=== PATIENT | male | born 1960 | race Caucasian/White ===

== ENCOUNTER → 2019-07-15 | Outpatient (CLI) | payer BC ==
--- NOTE | 2019-07-15 08:59 | US ---
EXAMINATION TYPE: US abdomen complete DATE OF EXAM: 07/15/2019 COMPARISON: NONE CLINICAL HISTORY: R10.9 Abdominal pain. RUQ pain and nausea that comes and goes in waves over the pas t 3 weeks EXAM MEASUREMENTS: Liver Length: 13.5 cm Gallbladder Wall: 0.2 cm CBD: 0.4 cm Spleen: 13.8 cm Right Kidney: 10.6 x 5.3 x 6.3 cm Left Kidney: 11.0 x 4.7 x 4.7 cm Pancreas: not seen due to bowel gas Liver: unable to image the left lobe due to high placement within ribcage and bowel gas , hypoechoic area superior to gallbladder may represent fatty sparring versus other etiology Gallbladder: wnl Evidence for sonographic Quinn's sign: no CBD: wnl Spleen: slightly enlarged Right Kidney: cysts seen, largest = 2.7cm in upper pole Left Kidney: 1.3cm cyst seen at superior pole Upper IVC: wnl Abd Aorta: wnl IMPRESSION: 1. Splenomegaly 2. Hypoechoic area within the left lobe liver of indeterminate etiology. Recommend CT of the abdomen. 3. Heterogeneous pattern of liver can be seen with fatty infiltration, hepatocellular disease or hepa titis.
== END | disposition home or self-care (01) ==
LOC: RADUSWWP 08:00
PROVIDERS: ATTEND Family Medicine
DX: K76.0 Fatty (change of) liver, not elsewhere classified (principal); R16.1 Splenomegaly, not elsewhere classified
CPT/HCPCS: 76700

== ENCOUNTER → 2019-07-24 | Outpatient (CLI) | payer BC ==
--- NOTE | 2019-07-24 09:08 | NM ---
EXAMINATION TYPE: NM hepatobiliary w EF DATE OF EXAM: 07/24/2019 COMPARISON: Ultrasound 07/15/2019 HISTORY: 58-year-old male with decreased appetite, nausea, heartburn, reflux, ulcers, alcohol use. TECHNIQUE: After the intravenous administration of 4.18 mCi Tc 99m Mebrofenin hepatobiliary scintigra phy is performed. Immediate images post injection. FINDINGS: There is satisfactory initial accumulation of tracer by the liver. The gallbladder is visualized wit hin 10 minutes. The small bowel activity is noted within 24 minutes. At one hour 8 ounces of oral e nsure plus is given to mimic CCK and gallbladder ejection fraction is calculated at 74 %, in the norm al range. Therefore there is no scintigraphic evidence of cystic or common bile duct obstruction to suggest acute cholecystitis or gallbladder dyskinesia. IMPRESSION: No scintigraphic evidence for acute/chronic cholecystitis or biliary dyskinesia.
== END | disposition home or self-care (01) ==
LOC: RADNMMAIN 06:56
PROVIDERS: ATTEND Family Medicine
DX: R10.11 Right upper quadrant pain (principal)
CPT/HCPCS: 78226; A9537

== ENCOUNTER → 2019-07-26 | Outpatient (CLI) | payer BC ==
--- NOTE | 2019-07-27 21:46 | CT ---
EXAMINATION TYPE: CT abdomen pelvis w con DATE OF EXAM: 07/26/2019 COMPARISON: NONE HISTORY: 58-year-old male Right upper quadrant pain with nausea x 4 weeks. TECHNIQUE: Contiguous axial scanning of the abdomen and pelvis following administration of 100 ml Iso sixto 300 IV contrast. Delayed images through the kidneys and coronal/sagittal reconstructions perform ed. CT DLP: 1058.9 mGycm Automated exposure control for dose reduction was used. FINDINGS: Heart normal size without pericardial effusion. Tiny hiatal hernia. Lung bases clear without pleural effusion. No focal liver lesion or biliary ductal dilatation. Portal venous system is patent. Gallbladder, adrenal glands, spleen, and pancreas appear within normal limits. Numerous cortical hypodensities within the kidneys, largest compatible with cysts, for example, measu ring 2.8 cm from the right upper pole and 1.6 cm from the left midpole. Additional cortical hypodensi ties are too small for accurate CT characterization and also likely represent cysts. No dilated small bowel, free fluid, or free air. No mesenteric or retroperitoneal lymphadenopathy. Normal appendix. Oral contrast progressed to the ascending colon. [id number] stool in the right side of the colon. Sigmoid diverticulosis. No pericolonic inflammatory change. Bladder is urine distended. Prostate gland enlargement 4.6 cm wide. No abnormal fluid collection in t he pelvis or pelvic lymphadenopathy. Bones: Degenerative changes at the hips. Mild degenerative disc disease L5-S1 and facet arthropathy l ower lumbar spine. Anterior endplate spondylosis lower thoracic spine. IMPRESSION: 1. SIGMOID DIVERTICULOSIS WITHOUT ACUTE DIVERTICULITIS. 2. MILD PROSTATOMEGALY (4.6 CM WIDE). 3. TINY HIATAL HERNIA.
== END | disposition home or self-care (01) ==
LOC: RADCTMAIN 11:49
PROVIDERS: ATTEND Family Medicine
DX: K57.30 Diverticulosis of large intestine without perforation or abscess without bleeding (principal); K44.9 Diaphragmatic hernia without obstruction or gangrene; N40.0 Benign prostatic hyperplasia without lower urinary tract symptoms
CPT/HCPCS: 74177; Q9967 ×2

== ENCOUNTER 2019-08-05 09:35 | Day surgery (SDC) | payer BC ==
[2019-07-30 17:42] VITALS: BMI 27.3
[~2019-08-05 09:35] MED LIST: LACTATED RINGERS 1,000 ML IV SCH
[2019-08-05 10:07] VITALS: RESP 16; TEMP 98
[2019-08-05] MEDS ORDERED: LIDOCAINE 1% 20 ML VIAL (10MG/ML) FOR IV START INTRADERMA ONE (10:12)
[2019-08-05] MEDS ORDERED: PROPOFOL 10 MG/ML 20 ML VIAL IV ONE (11:03)
--- NOTE | 2019-08-05 11:53 | P.PCN ---
Date of Procedure: 08/05/19 Description of Procedure: Brief history: Patient is a pleasant scheduled for an elective upper endoscopy as well as colonoscopy as a part of evaluation of dyspepsia and change in bowel habits. Procedure performed: Esophagogastroduodenoscopy with biopsies Colonoscopy with polypectomy and biopsies Estimated blood loss: Minimal. Preoperative diagnosis: Dyspepsia, change in bowel habits, last colonoscopy in 2009 Anesthesia: MAC Procedure: After informed consent was obtained from the patient was brought into the endoscopy unit and IV sedation was administered by anesthesia under continuous monitoring. Initially upper endoscopy was done. The Olympus GF 190 video endoscope was inserted into the mouth and esophagus intubated without any difficulty and was gradually advanced into the stomach and duodenum and carefully examined. The bulb and second part of the duodenum appeared normal, with biopsies taken to rule out celiac sprue. The scope was then withdrawn into the stomach adequately insufflated with air and upon careful examination the antrum and body, cardia and fundus appeared normal, except for some mild scattered erythema in the antrum and body suggestive of mild gastritis with biopsies taken to rule out Helicobacter pylori. The scope was then withdrawn into the esophagus. The GE junction was located at 41 cm to the incisors and appeared somewhat irregular with biopsies taken. It appeared regular with no erythema erosions or ulcerations. Rest of the esophagus appeared normal. Patient tolerated the procedure well. At this time the patient continued to remain sedation. Initial digital rectal examination was normal. Olympus CF 190 video colonoscope was then inserted into the rectum and gradually advanced to the cecum without any difficulty. Careful examination was performed as the scope was gradually being withdrawn. The prep was excellent. The cecum, ascending colon, transverse colon, descending colon, sigmoid colon and rectum appeared normal biopsies taken of the right and left colon to rule out microscopic colitis. Terminal ileum intubated and appeared normal with biopsies taken to rule out inflammatory process. A few small mouth diverticula noted in the sigmoid colon. Diminutive 2 mm sessile ascending colon polyp removed with cold forcep polypectomy. Diminutive 1 mm descending colon polyp removed with cold forcep polypectomy. Retroflexion was performed in the rectum and no lesions were noted. Patient tolerated the procedure well. Impression: 1. Mild gastritis antrum body, biopsied. Biopsies of the duodenum and GE junction. 2. 2 diminutive polyps removed with cold forceps from the ascending and descending colon. Mild sigmoid diverticulosis. Random biopsies taken of the right colon, left colon and terminal ileum to rule out inflammatory process. Recommendations: Findings of this examination were discussed with the patient as well as his . Okay to resume diet. Okay to resume medications. Follow-up in gastroenterology clinic as previously scheduled for pathology results.
[2019-08-05 12:15] VITALS: BP 106/70; PULSE 55
== END 2019-08-05 12:30 | disposition home or self-care (01) ==
LOC: ORWHC2ENDO 09:35
PROVIDERS: ATTEND Internal Medicine
DX: K29.50 Unspecified chronic gastritis without bleeding (principal); K21.0 Gastro-esophageal reflux disease with esophagitis; K63.89 Other specified diseases of intestine; D12.4 Benign neoplasm of descending colon; K57.30 Diverticulosis of large intestine without perforation or abscess without bleeding; I10 Essential (primary) hypertension; R00.2 Palpitations; N40.0 Benign prostatic hyperplasia without lower urinary tract symptoms; M10.9 Gout, unspecified; R11.0 Nausea; Z79.899 Other long term (current) drug therapy; Z90.89 Acquired absence of other organs; Z98.890 Other specified postprocedural states; Z84.89 Family history of other specified conditions; Z80.8 Family history of malignant neoplasm of other organs or systems
CPT/HCPCS: 88305; 45380; 43239; J2704

== ENCOUNTER 2019-11-18 19:12 | Emergency (ER) | payer BC ==
[2019-11-18 19:17] VITALS: RESP 18
[2019-11-18] MEDS ORDERED: SODIUM CHLORIDE 0.9% 1,000 ML IV STA (19:35)
[2019-11-18] MEDS ORDERED: PANTOPRAZOLE 40 MG/10 ML VIAL IVP STA (19:35)
--- NOTE | 2019-11-18 19:49 | ED ---
Abdominal Pain HPI - General Chief Complaint: Abdominal Pain Stated Complaint: GI issue Time Seen by Provider: 11/18/19 19:20 Source: patient Mode of arrival: wheelchair Limitations: no limitations - History of Present Illness Initial Comments: Patient is a 59-year-old male presenting to emergency Department with multiple abdominal complaints. Patient states he's been having GI issues since July including intermittent abdominal pains, diarrhea, constipation, bloating. He states he has been seeing Dr. Madrigal's office. Patient states in July he was fully worked up including blood work, scans, HIDA scan. There is no acute findings. Patient had a colonoscopy as well that showed diverticulosis, a few small polyps. Patient states he has lost approximately 30 pounds since July. He states he has not been trying to lose weight but has not had much of an appetite secondary to this intermittent abdominal pain. He denies any abdominal surgeries in the past. He states he was having issues with constipation but one week ago started having diarrhea. He denies melana. He does admit to having hemorrhoids but these are not bleeding. He states he has a family history of IBS. Patient states the reason he came in today because his s ymptoms have really increased over the past week. 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 Patient states he felt is best when he was on medication a few weeks ago. He states he really had any symptoms at all. Patient denies any fever, chills, chest pain, shortness of breath. Patient states he feels like he had a small episode of lightheadedness today. He denies any headache. He has no other complaints at this time. Upon arrival to the ER, his vital signs are stable. - Related Data Home Medications Medication Instructions Recorded Confirmed Lisinopril [Prinivil] 20 mg PO HS 06/23/16 08/05/19 Allopurinol [Zyloprim] 100 mg PO HS 07/30/19 08/05/19 Bismuth Subsalicylate 262 mg PO DAILY PRN 07/30/19 08/05/19 [Pepto-Bismol] L.acidoph,Paracasei, B.lactis 1 each PO DAILY 07/30/19 08/05/19 [Probiotic] Metoprolol Succinate (ER) [Toprol 50 mg PO HS 07/30/19 08/05/19 Xl] Omeprazole Magnesium [PriLOSEC OTC] 20 mg PO DAILY PRN 07/30/19 08/05/19 Omeprazole [PriLOSEC] 40 mg PO DAILY 07/30/19 08/05/19 Simethicone [Gas-X] 125 mg PO DIRECTED PRN 07/30/19 08/05/19 Previous Rx's Medication Instructions Recorded Dicyclomine [Bentyl] 20 mg PO TID #30 tablet 11/18/19 Allergies Allergy/AdvReac Type Severity Reaction Status Date / Time No Known Allergies Allergy Verified 11/18/19 19:17 Review of Systems ROS Statement: Those systems with pertinent positive or pertinent negative responses have been documented in the HPI. ROS Other: All systems not noted in ROS Statement are negative. Past Medical History Past Medical History: Hypertension, Prostate Disorder Additional Past Medical History / Comment(s): Occ Irregular heart beat. c/o nausea, abn pain, sour upset stomach for past 5 weeks. Sl BPH. Gout. History of Any Multi-Drug Resistant Organisms: None Reported Past Surgical History: Adenoidectomy, Tonsillectomy Additional Past Surgical History / Comment(s): Colonoscopy Past Anesthesia/Blood Transfusion Reactions: Family History of Problems w/ Anesthesia Additional Past Anesthesia/Blood Transfusion Reaction / Comment(s): Mother has PONV Past Psychological History: No Psychological Hx Reported Smoking Status: Never smoker Past Alcohol Use History: None Reported Past Drug Use History: None Reported - Past Family History Mother Family Medical History: Cancer Additional Family Medical History / Comment(s): Oral CA Father Family Medical History: Blood Disorder, Pulmonary Embolus Additional Family Medical History / Comment(s): "Had a gene for clotting disorder" General Exam - General Exam Comments Initial Comments: GENERAL: Well-appearing, well-nourished and in no acute distress. HEAD: Atraumatic, normocephalic. EYES: Pupils equal round and reactive to light, extraocular movements intact, sclera anicteric, conjunctiva are normal. ENT: TMs normal, nares patent, oropharynx clear without exudates. Moist mucous membranes. NECK: Normal range of motion, supple without lymphadenopathy or JVD. LUNGS: Breath sounds clear to auscultation bilaterally and equal. No wheezes rales or rhonchi. HEART: Regular rate and rhythm without murmurs, rubs or gallops. ABDOMEN: Generalized abdominal tenderness with palpation, increase in the right lower quadrant as well as right upper quadrant. Soft, normoactive bowel sounds. No guarding, no rebound. No masses appreciated. : Deferred EXTREMITIES: Normal range of motion, no pitting or edema. No clubbing or cyanosis. NEUROLOGICAL: Normal speech, normal gait. PSYCH: Normal mood, normal affect. SKIN: Warm, Dry, normal turgor, no rashes or lesions noted. Limitations: no limitations Course Vital Signs 11/18/19 11/18/19 19:14 20:58 Temperature 98.2 F 97.6 F Pulse Rate 82 66 Respiratory 18 18 Rate Blood Pressure 116/78 114/74 O2 Sat by Pulse 98 98 Oximetry Medical Decision Making - Medical Decision Making Patient is a 59-year-old male presenting with abdominal pain has been increasing over the past week. Vital signs are stable. He has been seeing Dr. Madrigal's office for chronic GI issues since July. Lab work today shows no acute abnormalities, normal lactic, urine is normal. Computed tomography scan of the abdomen today shows no signs of acute abdomen. Normal appendix, a few scattered diverticuli without evidence diverticulitis. Patient was given fluids and Protonix and reports improvement in symptoms. I discussed with patient that this may be stress-induced. Could also be related to IBS. I do not feel like this is infectious in nature. I recommended trial of Bentyl. Patient will continue on already prescribed omeprazole and Pepcid. He does have an appointment with Dr. Madrigal's office tomorrow. His stool culture is pending at this time. Patient is stable for discharge at this time. He is in agreement with this plan of care. Return parameters were discussed with the patient and he verbalized understanding. Case discussed with Dr. Reis. - Lab Data Result diagrams: 11/18/19 19:44 11/18/19 19:44 Lab Results 11/18/19 11/18/19 11/18/19 Range/Units 19:44 19:44 19:44 WBC 7.4 (3.8-10.6) k/uL RBC 4.37 (4.30-5.90) m/uL Hgb 13.2 (13.0-17.5) gm/dL Hct 38.8 L (39.0-53.0) % MCV 88.7 (80.0-100.0) fL MCH 30.3 (25.0-35.0) pg MCHC 34.1 (31.0-37.0) g/dL RDW 12.2 (11.5-15.5) % Plt Count 197 (150-450) k/uL Neutrophils % 71 % Lymphocytes % 20 % Monocytes % 6 % Eosinophils % 2 % Basophils % 0 % Neutrophils # 5.3 (1.3-7.7) k/uL Lymphocytes # 1.4 (1.0-4.8) k/uL Monocytes # 0.4 (0-1.0) k/uL Eosinophils # 0.1 (0-0.7) k/uL Basophils # 0.0 (0-0.2) k/uL PT 10.2 (9.0-12.0) sec INR 1.0 (<1.2) APTT 22.8 (22.0-30.0) sec Sodium 136 L (137-145) mmol/L Potassium 4.4 (3.5-5.1) mmol/L Chloride 104 (98-107) mmol/L Carbon Dioxide 24 (22-30) mmol/L Anion Gap 8 mmol/L BUN 18 (9-20) mg/dL Creatinine 1.03 (0.66-1.25) mg/dL Est GFR (CKD-EPI)AfAm >90 (>60 ml/min/1.73 sqM) Est GFR (CKD-EPI)NonAf 79 (>60 ml/min/1.73 sqM) Glucose 95 (74-99) mg/dL Plasma Lactic Acid Jhonatan (0.7-2.0) mmol/L Calcium 9.1 (8.4-10.2) mg/dL Total Bilirubin 0.5 (0.2-1.3) mg/dL AST 25 (17-59) U/L ALT 26 (4-49) U/L Alkaline Phosphatase 64 (38-126) U/L Total Protein 7.1 (6.3-8.2) g/dL Albumin 3.9 (3.5-5.0) g/dL Amylase 50 (30-110) U/L Lipase 76 (23-300) U/L TSH 4.630 (0.465-4.680) mIU/L Urine Color Urine Appearance (Clear) Urine pH (5.0-8.0) Ur Specific Russell (1.001-1.035) Urine Protein (Negative) Urine Glucose (UA) (Negative) Urine Ketones (Negative) Urine Blood (Negative) Urine Nitrite (Negative) Urine Bilirubin (Negative) Urine Urobilinogen (<2.0) mg/dL Ur Leukocyte Esterase (Negative) 11/18/19 11/18/19 Range/Units 19:44 20:37 WBC (3.8-10.6) k/uL RBC (4.30-5.90) m/uL Hgb (13.0-17.5) gm/dL Hct (39.0-53.0) % MCV (80.0-100.0) fL MCH (25.0-35.0) pg MCHC (31.0-37.0) g/dL RDW (11.5-15.5) % Plt Count (150-450) k/uL Neutrophils % % Lymphocytes % % Monocytes % % Eosinophils % % Basophils % % Neutrophils # (1.3-7.7) k/uL Lymphocytes # (1.0-4.8) k/uL Monocytes # (0-1.0) k/uL Eosinophils # (0-0.7) k/uL Basophils # (0-0.2) k/uL PT (9.0-12.0) sec INR (<1.2) APTT (22.0-30.0) sec Sodium (137-145) mmol/L Potassium (3.5-5.1) mmol/L Chloride (98-107) mmol/L Carbon Dioxide (22-30) mmol/L Anion Gap mmol/L BUN (9-20) mg/dL Creatinine (0.66-1.25) mg/dL Est GFR (CKD-EPI)AfAm (>60 ml/min/1.73 sqM) Est GFR (CKD-EPI)NonAf (>60 ml/min/1.73 sqM) Glucose (74-99) mg/dL Plasma Lactic Acid Jhonatan 0.9 (0.7-2.0) mmol/L Calcium (8.4-10.2) mg/dL Total Bilirubin (0.2-1.3) mg/dL AST (17-59) U/L ALT (4-49) U/L Alkaline Phosphatase (38-126) U/L Total Protein (6.3-8.2) g/dL Albumin (3.5-5.0) g/dL Amylase (30-110) U/L Lipase (23-300) U/L TSH (0.465-4.680) mIU/L Urine Color Light Yellow Urine Appearance Clear (Clear) Urine pH 5.5 (5.0-8.0) Ur Specific Russell 1.010 (1.001-1.035) Urine Protein Negative (Negative) Urine Glucose (UA) Negative (Negative) Urine Ketones Negative (Negative) Urine Blood Negative (Negative) Urine Nitrite Negative (Negative) Urine Bilirubin Negative (Negative) Urine Urobilinogen <2.0 (<2.0) mg/dL Ur Leukocyte Esterase Negative (Negative) Disposition Clinical Impression: Abdominal pain Disposition: HOME SELF-CARE Condition: Stable Instructions (If sedation given, give patient instructions): Abdominal Pain (ED) Additional Instructions: Please return to the Emergency Department if symptoms worsen or any other conc erns. Follow-up with Dr. Madrigal's office as discussed. Continue with already prescribed Pepcid and omeprazole. Trial of Bentyl. Prescriptions: Dicyclomine [Bentyl] 20 mg PO TID #30 tablet Is patient prescribed a controlled substance at d/c from ED?: No Referrals: Rolf Huynh MD [Primary Care Provider] - 1-2 days
[2019-11-18 20:04] LABS: Basophils % (A) 0 %; Eosinophils # (A) 0.1 k/uL (0-0.7); Eosinophils % (A) 2 %; HCT 38.8 % (39.0-53.0); HGB 13.2 gm/dL (13.0-17.5); Lymphocytes # (A) 1.4 k/uL (1.0-4.8); Lymphocytes % (A) 20 %; MCH 30.3 pg (25.0-35.0); MCHC 34.1 g/dL (31.0-37.0); MCV 88.7 fL (80.0-100.0); Mean Platelet Volume 7.7; Monocytes # (A) 0.4 k/uL (0-1.0); Monocytes % (A) 6 %; Neutrophils # (A) 5.3 k/uL (1.3-7.7); Neutrophils % (A) 71 %; Platelet Count 197 k/uL (150-450); RBC 4.37 m/uL (4.30-5.90); RDW 12.2 % (11.5-15.5); WBC 7.4 k/uL (3.8-10.6)
[2019-11-18 20:12] LABS: Partial Thromboplastin Time 22.8 sec (22.0-30.0); Prothrombin Time 10.2 sec (9.0-12.0)
[2019-11-18 20:15] LABS: ALT 26 U/L (4-49); AST 25 U/L (17-59); African American GFR (CKD) >90 (>60 ml/min/1.73 sqM); Albumin 3.9 g/dL (3.5-5.0); Alkaline Phosphatase 64 U/L (38-126); Amylase 50 U/L (30-110); Anion Gap 8 mmol/L; Blood Urea Nitrogen 18 mg/dL (9-20); Calcium 9.1 mg/dL (8.4-10.2); Carbon Dioxide 24 mmol/L (22-30); Chloride 104 mmol/L (98-107); Glucose 95 mg/dL (74-99); Non-African American GFR(CKD) 79 (>60 ml/min/1.73 sqM); Potassium 4.4 mmol/L (3.5-5.1); Sodium 136 mmol/L (137-145); Total Bilirubin 0.5 mg/dL (0.2-1.3); Total Protein 7.1 g/dL (6.3-8.2)
--- NOTE | 2019-11-18 20:55 | CT ---
EXAMINATION TYPE: CT abdomen pelvis w con DATE OF EXAM: 11/18/2019 COMPARISON: 07/26/2019 HISTORY: abdominal pain CT DLP: 1015.3 mGycm Automated exposure control for dose reduction was used. CONTRAST: Performed with IV Contrast, patient injected with 100 mL of Isovue 300. Multiple axial sections were obtained from the diaphragm to the floor the pelvis with intravenous con trast. Lung bases are clear. There is no pleural effusion. Heart size is normal. There is no pericardial eff usion. Liver spleen pancreas gallbladder stomach appear normal. Bile ducts are not dilated. There is no adrenal mass. Kidneys have normal size and contour. There is no hydronephrosis. Ureters a re not dilated. There are bilateral multiple renal cortical cysts that measure up to 2.5 cm. There is no retroperitoneal adenopathy. Delayed images show normal renal excretion. Bladder distends smoothly . There is no inguinal hernia. There is no free fluid in the pelvis. There is no mesenteric edema. There is no ascites or free air. Appendix appears normal. There is no e vidence of a bowel obstruction. Lumbar vertebra have normal alignment. There is no compression fracture. Bony pelvis appears intact. There is mild spurring of the acetabula. IMPRESSION: Renal cortical cysts. No sign of acute abdomen and pelvis. Normal appendix. No change compared to old exam. There are a few scattered sigmoid diverticula without evidence of diverticulitis.
[2019-11-18 20:57] LABS: Appearance,Urine Clear (Clear); Bilirubin,Urine Negative (Negative); Blood,Urine Negative (Negative); Color,Urine Light Yellow; Glucose,Urine (UA) Negative (Negative); Ketones,Urine Negative (Negative); Leukocyte Esterase,Urine Negative (Negative); Nitrite,Urine Negative (Negative); PH, Urine 5.5 (5.0-8.0); Protein,Urine Negative (Negative); Urobilinogen,Urine <2.0 mg/dL (<2.0)
[2019-11-18 20:59] VITALS: BP 114/74; PULSE 66; TEMP 97.6
[2019-11-18] MEDS ORDERED: DICYCLOMINE 20 MG TAB PO STA (21:30)
== END 2019-11-18 21:42 | disposition home or self-care (01) ==
LOC: EC 19:12
DX: R10.9 Unspecified abdominal pain (principal); I10 Essential (primary) hypertension; Z79.899 Other long term (current) drug therapy
CPT/HCPCS: 36415; 80053; 84443; 82150; 83605; 83690; 85025; 85610; 85730; 81003; 74177; 99284; 96374; 96361 ×2; C9113; Q9967

== ENCOUNTER → 2022-11-18 | Outpatient (CLI) | payer BC ==
[2022-11-18 12:18] LABS: African American GFR (CKD) 74.1 (60.0-200.0); Albumin 4.2 g/dL (3.8-4.9); Albumin/Globulin Ratio 1.5 (1.60-3.17); BUN/Creat Ratio 11.83 Ratio (12.00-20.00); Blood Urea Nitrogen 14.2 mg/dL (9.0-27.0); Calcium 9.2 mg/dL (8.7-10.3); Globulin 2.8 g/dL (1.6-3.3); Potassium 4.3 mmol/L (3.5-5.5); Total Bilirubin 0.6 mg/dL (0.30-1.20)
== END | disposition home or self-care (01) ==
LOC: LABWHC1 08:00
PROVIDERS: ATTEND Internal Medicine Interventional Cardiology
DX: I10 Essential (primary) hypertension (principal); I48.0 Paroxysmal atrial fibrillation
CPT/HCPCS: 36415; 80053; 84443

== ENCOUNTER 2022-12-11 09:11 | Day surgery (SDC) | payer BC ==
[2022-12-11] MEDS ORDERED: SODIUM CHLORIDE 0.9% 1,000 ML IV ONE (09:39)
[2022-12-11] MEDS ORDERED: SODIUM CHLORIDE 0.9% 500 ML 500 ML IV ONE (09:39)
[2022-12-11 09:42] LABS: Basophils % (A) 0 %; Eosinophils # (A) 0.1 k/uL (0-0.7); Eosinophils % (A) 2 %; HCT 41.4 % (39.0-53.0); HGB 14.2 gm/dL (13.0-17.5); Lymphocytes # (A) 1.8 k/uL (1.0-4.8); Lymphocytes % (A) 31 %; MCHC 34.3 g/dL (31.0-37.0); MCV 90.1 fL (80.0-100.0); Mean Platelet Volume 7.5; Monocytes # (A) 0.3 k/uL (0-1.0); Monocytes % (A) 5 %; Neutrophils # (A) 3.6 k/uL (1.3-7.7); Neutrophils % (A) 60 %; Platelet Count 193 k/uL (150-450); RBC 4.59 m/uL (4.30-5.90); RDW 12.4 % (11.5-15.5); WBC 5.9 k/uL (3.8-10.6)
[2022-12-11] MEDS ORDERED: LIDOCAINE 2% INJ 20 MG/ML (2 ML VIAL) ONE (09:57)
[2022-12-11] MEDS ORDERED: SUCCINYLCHOLINE CHLORIDE 200 MG/10 ML VIAL IV ONE (09:57)
[2022-12-11] MEDS ORDERED: ePHEDrine 50 MG/ML 1 ML VIAL ONE (09:57)
[2022-12-11] MEDS ORDERED: ISOPROTERENOL 250 MCG/1.25 ML SYR IV ONE (09:57)
[2022-12-11] MEDS ORDERED: fentaNYL (PF) 50 MCG/ML 2 ML AMP ONE (09:57)
[2022-12-11] MEDS ORDERED: DEXAMETHASONE SOD PHOSPHATE 4 MG/ML 1 ML VIAL ONE (09:57)
[2022-12-11] MEDS ORDERED: PROPOFOL 10 MG/ML 20 ML VIAL IV ONE (09:57)
[2022-12-11] MEDS ORDERED: ONDANSETRON 4 MG/2 ML VIAL ONE (09:57)
[2022-12-11] MEDS ORDERED: MIDAZOLAM 2 MG/2 ML VIAL ONE (09:57)
[2022-12-11] MEDS ORDERED: PHENYLEPHRINE-0.9% NACL SYG 1,000 MCG/10 ML SYRINGE ONE (09:57)
[2022-12-11] MEDS ORDERED: HEPARIN SODIUM,PORCINE 10,000 UNIT/ML 1 ML VIAL ONE (09:57)
[2022-12-11] MEDS ORDERED: HEPARIN SODIUM,PORCINE 5,000 UNIT/ML 1 ML VIAL ONE (09:57)
[2022-12-11] MEDS ORDERED: HEPARIN SOD,PORK IN 0.45% NACL 25,000 UNIT in 0.45% NACL 1 250ML.BAG IV ONE (10:27)
[2022-12-11] MEDS ORDERED: LIDOCAINE 1% INJ 10MG/ML (30 ML VIAL-PF) SQ ONE (10:31)
[2022-12-11] MEDS ORDERED: IOPAMIDOL-370 100ML BTL INJ ONE (12:55)
[2022-12-11] MEDS ORDERED: ACETAMINOPHEN IV (For NPO) 1,000 MG in EMPTY BAG 1 BAG IVPB ONE (13:29)
[2022-12-11] MEDS ORDERED: ACETAMINOPHEN TAB 325 MG TAB PO PRN (13:29)
[2022-12-11] MEDS: LACTATED RINGERS 1,000 ML IV SCH (16:30)
[2022-12-11] MEDS: SODIUM CHLORIDE 0.9% 1,000 ML IV SCH (16:31)
[2022-12-11] MEDS ORDERED: PANTOPRAZOLE 40 MG TABLET PO SCH (17:30)
--- NOTE | 2022-12-11 17:57 | P.EPPROC ---
- EP Procedure Note Electrophysiology Procedure Note: PROCEDURE A. fib ablation, recurrent persistent DIAGNOSIS Atrial fibrillation, symptomatic, refractory to therapy ALLERGY to [place] RESULT No left atrial appendage mass seen on intracardiac echo, thickened pericardium with small effusion around the base of the LV and posterior LA Successful A. fib ablation/pulmonary vein isolation of all veins using cryo- ablation Complete entrance block in all 4 veins confirmed Left atrial roof ablation Left atrial septal ablation No evidence for phrenic nerve injury Esophageal deflection YES PROCEDURE DETAILS Written informed consent prior to procedure. Patient brought to the EP lab. General anesthesia given. Heparin administered. A city maintained above 300 seconds Both groins prepped and draped per protocol and venous sheaths placed. Esophagus intubated, circa catheter for temperature monitoring an endoscope for possible esophageal deflection. Phrenic nerve monitoring performed. Esophageal temperature monitoring performed. Esophageal deflection performed if circa catheter overlapping with the balloon or circa temperature less than 27.5C Intracardiac echocardiography performed. Pericardium evaluated. Left atrial appendage evaluated. Left atrium evaluated along with pulmonary veins Transseptal catheterization performed under fluoroscopic guidance and intracardiac echo guidance Cryoablation sheath exchanged, balloon catheter along with achieve catheter placed in the left atrium. Pulmonary veins isolated in the following sequence: Left superior pulmonary vein followed by left inferior pulmonary vein, followed by right inferior pulmonary vein and lastly right superior pulmonary vein. Phrenic nerve stimulation along with capture thresholds within the SVC and right superior pulmonary vein to identify the phrenic nerve proximity to the cryo- balloon. Pulmonary veins isolated and confirmed with entrance and exit block. Phrenic nerve integrity confirmed at the end of the procedure Ablation of the left atrial roof performed with sequential lesions from the left superior to the right superior pulmonary veins. Ablation of the electrograms confirmed Ablation of the left atrial septum performed with cannulation of the superior branch of the right inferior or the inferior branch of the right superior vein to achieve ablation of the posterior septum of the left atrium. Ablation of electrograms confirmed Diagnostic catheters for the high right atrium, His bundle, coronary sinus placed. LA and RA pressures recorded RA pressure: LA pressure: Diagnostic EP study with coronary sinus pacing and recording Baseline measurements: Sinus cycle length 933 ms, [place] interval 129 ms, QRS 110 ms and QT 429 ms AH 65 and HV 39 ms Sinus node recovery times at 600, 504 100 ms were 1102 him a 1141 and 887 ms VA Wenckebach block 3 and 40 ms Sánchez response to Parahisian pacing AV node Wenckebach block 330 ms High-dose Isuprel was used and no atrial fibrillation was noted Venous sheaths were removed and hemostasis assured with a closure device. Patient extubated and transferred to recovery Increase procedural time During ablation multiple attempts had to be made to move the esophagus a safe distance of the from the pulmonary vein draining cryoablation, to avoid excessive thermal cooling of the esophagus This took extra time and effort to keep the esophagus a safe distance away from the cryoablation balloon. During ablation of the right-sided veins, phrenic nerve stimulation was noted within the right-sided veins. The patient had a very large right superior pulmonary vein. Multiple cryoablation's were needed to completely isolate this pain. At the end of far field signals from the SVC were noted in this vein and this was differentiated with pacing maneuvers The left superior vein had an unusual takeoff and it took extra effort to identify this vein and then successfully ablated. Multiple attempts needed for successful cryoablation isolation of both the pulmonary veins During the right inferior pulmonary vein ablation, at 219 seconds, transient brief phrenic nerve paresis was noted. This improved to normal conduction in less than 1 minute Ablation of the septum was then performed successfully without any paresis. Ablation of the right superior pulmonary vein was also performed without any paresis PROCEDURES PERFORMED Diagnostic EP study CS pacing and recording Left and right transseptal catheterization Catheter the mapping of the tachycardia Intracardiac echocardiography Pulmonary vein isolation with transseptal and comprehensive EPS, [id number] Extended procedure duration Drug infusion, +[id number] Left atrial roof line, +[id number] Linear ablation, left atrium, +[id number]
[2022-12-11] MEDS: APIXABAN 5 MG TAB PO SCH (20:17)
[2022-12-12] MEDS: SODIUM CHLORIDE 0.9% 1,000 ML IV SCH (05:19)
[2022-12-12] MEDS: LACTATED RINGERS 1,000 ML IV SCH (05:19)
[2022-12-12 06:52] VITALS: BP 134/82; PULSE 82; RESP 14; TEMP 98.1
[2022-12-12] MEDS ORDERED: COLCHICINE 0.6 MG EACH PO ONE (08:06)
[2022-12-12] MEDS: APIXABAN 5 MG TAB PO SCH (08:51)
[2022-12-12] MEDS ORDERED: AMIODARONE 200 MG TAB PO SCH ×2 (09:00)
[2022-12-12] MEDS ORDERED: METOPROLOL SUCCINATE (ER) 50 MG TAB.ER.24H PO SCH ×2 (09:00)
--- NOTE | 2022-12-12 10:15 | P.PRLE ---
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 He is done well postoperatively I am treating him with colchicine 0.6 mg by mouth daily, short-term post AF ablation He will continue metoprolol at a low dose of 50 mrem once daily He will stop amiodarone after one month He will continue ELIQUIS 5 mg twice daily Thank you for entrusting me with the care of the patient Warm regards Sincerely Trav Davis
--- NOTE | 2022-12-12 10:54 | P.DS ---
Providers Attending physician: Trav Davis Primary care physician: Stated None Hospital Course: This is a 62-year-old male who is status post atrial fibrillation ablation. Patient examined this morning at the bedside. Patient complains of some mild soreness in his chest. Denies shortness of breath. His vital signs are stable. He was deemed stable for discharge home today by Dr. Davis. He is to follow up post discharge with Dr. Hamm Discharge diagnosis #1 persistent atrial fibrillation, status post A. fib ablation Nurse practitioner note has been reviewed by physician. Signing provider agrees with the documented findings, assessment, and plan of care. Plan - Discharge Summary Discharge Rx Participant: No New Discharge Prescriptions: New Colchicine [Colcrys] 0.6 mg PO DAILY #7 tablet Continue Omeprazole [PriLOSEC] 20 mg PO AC-SUPPER Metoprolol Succinate (ER) [Toprol XL] 50 mg PO BID allopurinoL [Zyloprim] 100 mg PO HS Men's Multivitamin 1 tab PO QAM Apixaban [Eliquis] 5 mg PO BID #60 tab Amiodarone [Cordarone] 200 mg PO BID #60 tab Discharge Medication List Metoprolol Succinate (ER) [Toprol XL] 50 mg PO BID 07/30/19 [History] Omeprazole [PriLOSEC] 20 mg PO AC-SUPPER 07/30/19 [History] allopurinoL [Zyloprim] 100 mg PO HS 07/30/19 [History] Men's Multivitamin 1 tab PO QAM 12/07/22 [History] Amiodarone [Cordarone] 200 mg PO BID #60 tab 12/12/22 [Rx] Apixaban [Eliquis] 5 mg PO BID #60 tab 12/12/22 [Rx] Colchicine [Colcrys] 0.6 mg PO DAILY #7 tablet 12/12/22 [Rx] Follow up Appointment(s)/Referral(s): Kamaljit Hamm MD [STAFF PHYSICIAN] - 12/22/22 2:45 pm Patient Instructions/Handouts: Moderate Sedation (DC) Activity/Diet/Wound Care/Special Instructions: *NO LIFTING, PUSHING, OR PULLING ANYTHING OVER 5 POUNDS FOR 5 DAYS *NO DRIVING FOR 3 DAYS *YOU CAN REMOVE YOUR DRESSING AND SHOWER TOMORROW BUT DO NOT SUBMERSE YOUR PUNCTURE SITE IN WATER FOR A FEW DAYS TO PREVENT INFECTION - SO NO TUB BATHS, POOLS, HOT TUBS, DISHES...ETC *ANY SIGNS OF BLEEDING (HARDNESS, SWELLING, OR EXCESSIVE BRUISING) HOLD DIRECT PRESSURE ON YOUR PUNCTURE SITE AND COME TO THE NEAREST EMERGENCY ROOM TO GET YOUR PUNCTURE SITE LOOKED AT - DO NOT DRIVE YOURSELF! EITHER CALL EMS OR HAVE SOMEONE DRIVE YOU! Discharge Disposition: HOME SELF-CARE
== END 2022-12-12 10:47 | disposition home or self-care (01) ==
LOC: CATHEP 09:11 → 6NMEDSUR 13:48 → CATHEP 12-12 10:47
PROVIDERS: ATTEND Internal Medicine Clinical Cardiac Electrophysiology
DX: I48.19 Other persistent atrial fibrillation (principal); I31.9 Disease of pericardium, unspecified; I10 Essential (primary) hypertension; Z82.49 Family history of ischemic heart disease and other diseases of the circulatory system
CPT/HCPCS: 93623; 93656; 93657; 84443; 85025; C1894 ×2; C1769 ×4; C1760; C1759; C1893; C1733; C1766; C1730; J2001; Q9967; J1644

== ENCOUNTER → 2023-02-26 | Outpatient (CLI) | payer BC ==
--- NOTE | 2023-02-26 10:08 | MR ---
EXAMINATION TYPE: MR Prostate wo/w con DATE OF EXAM: 02/26/2023 9:01 AM COMPARISON: CT 10/20/2019. CLINICAL INDICATION: Male, 62 years old with history of R97.20 elevated PSA; TECHNIQUE: Multi-planar, multi-sequence imaging of the pelvis is performed prior to and following the uncomplicated administration of bolus intravenous gadolinium. CONTRAST: 9.5 Gadavist Interpretive Criteria: PI-RADS v2.1 SERUM PSA: 4.2 on 11/02/2021 2.8 on 10/22/2020 Unable to read possibly a 4.0 on 12/19/2022 scan. SURGICAL PATHOLOGY: No data available. FINDINGS: Prostatic dimensions: 5.2 x 4.9 x 3.5 cm. "Bullet" Volume:58.37 (PSA density=0.07 ng/mL/mL) CENTRAL GLAND (Central and Transition Zones/CZ+TZ): Multiple bilateral, heterogenous appearing hypertrophic stromal nodules, without suspicious lesion. M edian lobe hypertrophy with protrusion into the base of the bladder. (PI-RADS 2) PERIPHERAL ZONE (PZ): Bilateral linear, indistinct wedgelike areas of low ADC, and low T2 signal, No evidence of masslike a bnormality, or localized perfusional hypervascularity, to further suggest a focus of clinically signi ficant prostate cancer. (PI-RADS 2) SEMINAL VESICLES (SV): Symmetric and unremarkable. PERIPROSTATIC TISSUES: Unremarkable. LYMPH NODES: No enlarged pelvic lymph node. REMAINING PELVIS: Bladder wall is within normal limits given distention. No abnormal free or organized intrapelvic fluid collection. No pathologic bowel dilation or mural thickening. Left fat-containing inguinal hernias. OSSEOUS STRUCTURES: No suspicious osseous abnormality. There is a paralabral cyst involving the left hip inferior mediall y. There is small left hip joint effusion. Degeneration changes of the left hip with osteophyte formation and joint space narrowing. IMPRESSION: 1. No specific features for high-risk prostate cancer. Maximum PI-RADS score: 2. 2. Moderate BPH, estimated gland volume 58.37mL. 3. Left hip paralabral cyst which can be seen in setting of labral tears. Small left joint effusion.
== END | disposition home or self-care (01) ==
LOC: RADMRIMAIN 07:50
PROVIDERS: ATTEND Urology
DX: N40.0 Benign prostatic hyperplasia without lower urinary tract symptoms (principal); M24.852 Other specific joint derangements of left hip, not elsewhere classified; M25.452 Effusion, left hip; R97.20 Elevated prostate specific antigen [PSA]
CPT/HCPCS: 72197; A9585

== ENCOUNTER → 2023-07-19 | Outpatient (CLI) | payer BC ==
[2023-07-19 16:13] LABS: Basophils # (A) 0.06 X 10*3/uL (0.00-0.10); Basophils % (A) 1.2 %; Eosinophils # (A) 0.24 X 10*3/uL (0.04-0.35); Eosinophils % (A) 4.9 %; HCT 41.6 % (39.6-50.0); HGB 13.7 g/dL (13.0-17.0); Lymphocytes # (A) 1.33 X 10*3/uL (0.90-5.00); MCH 30.8 pg (27.0-32.0); MCHC 32.9 g/dL (32.0-37.0); MCV 93.5 FL (80.0-97.0); Mean Platelet Volume 9.6 FL (9.5-12.2); Monocytes # (A) 0.39 X 10*3/uL (0.20-1.00); Monocytes % (A) 7.9 %; NRBC Per 100 WBC 0 X 10*3/uL (0.00-0.01); Neutrophils # (A) 2.87 X 10*3/uL (1.80-7.70); Neutrophils % (A) 58.2 %; Platelet Count 163 X 10*3/uL (140-440); RBC 4.45 X 10*6/uL (4.40-5.60); RDW 12.5 % (11.5-14.5); WBC 4.93 X 10*3/uL (4.50-10.00)
== END | disposition home or self-care (01) ==
LOC: LABPAT 08:40
PROVIDERS: ATTEND Surgery
DX: K40.90 Unilateral inguinal hernia, without obstruction or gangrene, not specified as recurrent (principal); Z01.818 Encounter for other preprocedural examination
CPT/HCPCS: 85025; 86850; 86900; 86901; 93005

== ENCOUNTER 2023-07-23 06:29 | Day surgery (SDC) | payer BC ==
[2023-07-19 09:35] VITALS: BMI 27.7
[~2023-07-23 06:29] MED LIST changes: +ACETAMINOPHEN TAB 500 MG TAB PO PRN; +HEPARIN SODIUM,PORCINE/PF 5,000 UNIT/0.5 ML SYRINGE SQ PRN; -LACTATED RINGERS 1,000 ML IV SCH
[2023-07-23] MEDS ORDERED: MIDAZOLAM 2 MG/2 ML VIAL IV PRN (07:17)
[2023-07-23] MEDS ORDERED: DEXAMETHASONE SOD PHOSPHATE 4 MG/ML 1 ML VIAL IV ONE (07:17)
[2023-07-23] MEDS ORDERED: ONDANSETRON 4 MG/2 ML VIAL IVP ONE (07:17)
[2023-07-23] MEDS ORDERED: HYDROmorphone 0.5 MG/0.5 ML SYRINGE IVP PRN (07:17)
[2023-07-23] MEDS ORDERED: SCOPOLAMINE 1 MG/72 HR PATCH TRANSDERM ONE (07:17)
--- NOTE | 2023-07-23 07:28 | P.GSHP ---
History of Present Illness H&P Date: 07/23/23 Chief Complaint: Left inguinal hernia 62-year-old male here today for elective repair left inguinal hernia. Increasing in size over time. Mild soreness particularly with physical activities. Patient also with some arthritis left hip. No symptoms on the right-hand side. Past Medical History Past Medical History: Atrial Fibrillation, GERD/Reflux, Hypertension Additional Past Medical History / Comment(s): See Dr. Davis's H&P. Palpitations, pvc's, IBS, benign colon polyps, gout. History of Any Multi-Drug Resistant Organisms: None Reported Past Surgical History: Adenoidectomy, Cardiac Ablation, Tonsillectomy Additional Past Surgical History / Comment(s): Colonoscopies/polypectomy Past Anesthesia/Blood Transfusion Reactions: Family History of Problems w/ Anesthesia Additional Past Anesthesia/Blood Transfusion Reaction / Comment(s): Mother has PONV. Pt has never had a blood transfusion. Smoking Status: Never smoker - Past Family History Mother Family Medical History: Cancer Additional Family Medical History / Comment(s): Oral CA Father Family Medical History: Blood Disorder, Deep Vein Thrombosis (DVT), Pulmonary Embolus Additional Family Medical History / Comment(s): "Had a gene for clotting disorder" Medications and Allergies Home Medications Medication Instructions Recorded Confirmed Type Metoprolol Succinate (ER) [Toprol 50 mg PO BID 07/30/19 07/23/23 History XL] Omeprazole [PriLOSEC] 20 mg PO AC-SUPPER 07/30/19 07/23/23 History allopurinoL [Zyloprim] 100 mg PO HS 07/30/19 07/23/23 History Apixaban [Eliquis] 5 mg PO BID #60 tab 12/12/22 07/23/23 Rx Amitriptyline HCl [Elavil] 25 mg PO HS 07/19/23 07/23/23 History Multivit-Mins/Iron/Folic/Lycop 1 each PO DAILY 07/19/23 07/23/23 History [Centrum Men's Tablet] Allergies Allergy/AdvReac Type Severity Reaction Status Date / Time dronedarone [From Multaq] Allergy Tongue Verified 07/23/23 07:17 swelling Surgical - Exam Vital Signs Temp Pulse Resp BP Pulse Ox 97.4 F L 66 18 137/89 97 07/23/23 07:19 07/23/23 07:19 07/23/23 07:19 07/23/23 07:19 07/23/23 07:19 Physical exam: General: Well-developed, well-nourished HEENT: Normocephalic, sclerae nonicteric Abdomen: Nontender, nondistended, reducible left inguinal hernia Extremities: No edema Neuro: Alert and oriented Assessment and Plan (1) Left inguinal hernia Narrative/Plan: 62-year-old male with reducible left inguinal hernia. We'll proceed with laparoscopic da Tatyana assisted repair left inguinal hernia with mesh, possible open, possible bilateral. Risks of bleeding, infection, recurrence, bladder and bowel injury, numbness, nerve injury, conversion to an open procedure were discussed with the patient. The patient understands and wishes to proceed. Current Visit: Yes Status: Acute Code(s): K40.90 - UNIL INGUINAL HERNIA, W/O OBST OR GANGR, NOT SPCF RECUR SNOMED Code(s): 964942045
[2023-07-23] MEDS ORDERED: TAMSULOSIN 0.4 MG CAP.ER.24H PO ONE (08:18)
[2023-07-23] MEDS: LACTATED RINGERS 1,000 ML IV SCH ×2 (08:18→14:51)
[2023-07-23] MEDS ORDERED: KETAMINE HCL IN 0.9 % NACL 50 MG/5 ML SYRINGE ONE (09:05)
[2023-07-23] MEDS ORDERED: fentaNYL (PF) 50 MCG/ML 2 ML AMP ONE (09:05)
[2023-07-23] MEDS ORDERED: MIDAZOLAM 2 MG/2 ML VIAL ONE (09:05)
[2023-07-23] MEDS ORDERED: ROCURONIUM 10 MG/ML (5 ML VIAL) IV ONE (09:05)
[2023-07-23] MEDS ORDERED: PROPOFOL 10 MG/ML 20 ML VIAL IV ONE (09:05)
[2023-07-23] MEDS ORDERED: SUCCINYLCHOLINE CHLORIDE 200 MG/10 ML VIAL IV ONE (09:05)
[2023-07-23] MEDS ORDERED: KETOROLAC 15 MG/ML 1 ML VIAL ONE (09:05)
[2023-07-23] MEDS ORDERED: GLYCOPYRROLATE 0.2 MG/ML 2 ML VIAL ONE (09:05)
[2023-07-23] MEDS ORDERED: NEOSTIGMINE 1 MG/ML 10 ML VIAL ONE (09:05)
[2023-07-23] MEDS ORDERED: LIDOCAINE 1% INJ 10MG/ML (20 ML MDV) ONE (09:05)
[2023-07-23] MEDS ORDERED: BUPIVACAINE (PF) 0.25% 30 ML VIAL SQ ONE (09:10)
[2023-07-23] MEDS ORDERED: LACTATED RINGERS 1,000 ML IV ONE (10:05)
--- NOTE | 2023-07-23 10:59 | P.OP ---
Date of Procedure: 07/23/23 Procedure(s) Performed: PREOPERATIVE DIAGNOSIS: Left inguinal hernia POSTOPERATIVE DIAGNOSIS: Left direct inguinal hernia PROCEDURE: Laparoscopic da Tatyana assisted repair left inguinal hernia with mesh SURGEON: Dr. Corbett ANESTHESIA: General OPERATIVE PROCEDURE DETAILS: Patient was placed in the operating table in the supine position. The patient was placed under general anesthesia. The abdomen was prepped and draped in usual sterile fashion. A small curvilinear supraumbilical incision was made. The fascia was retracted anteriorly with Koko forceps. The Veress needle was inserted. The saline drop test was normal. Insufflation took place to 15 mmHg. An 8 mm trocar was placed into the peritoneal cavity. 2 additional 8 mm trochars were placed in the right upper quadrant and left upper quadrant under visualization. The robotic arms were then brought in and docked into place. The fenestrated bipolar was used in the left arm and the laparoscopic km was utilized in the right arm. A 30 8 mm scope was used in the up position. The peritoneal cavity was inspected. No visible hernia was seen bilaterally. The left side was addressed. The peritoneum was incised in a horizontal fashion cephalad to the internal inguinal ring. Following that careful dissection of the preperitoneal space took place. This took place using both electrocautery, sharp dissection but primarily blunt dissection. Visualization of the pubic tubercle and Torsten's ligament took place medially. Full dissection took place laterally as well. The patient was found to have a small incarcerated direct inguinal hernia containing fatty tissue. This was able to be fully dissected. Once we had adequate space the [id number] Progrip mesh was advanced into the preperitoneal space and flattened out appropriately to cover all potential hernia sites. The mesh was secured to Torsten's ligament extending medially and then anteriorly/superiorly using an absorbable 30V lock suture. The peritoneal defect was then closed using a absorbable 2-0 VLok suture. A portion of the hernia fat was incorporated into the peritoneal closure to help prevent future recurrence. The pneumoperitoneum was then evacuated. The skin of all 3 sites was closed using a 4-0 Monocryl stitch. Skin glue was then applied. TYPE OF MESH USED: Progrip LOCATION OF MESH: Sub-lay FIXATION: Absorbable 30V lock PREOPERATIVE DISCUSSION ON SMOKING CESSASTION: Yes PREOPERATIVE DISCUSSION ON MORBID OBESITY: Yes PREOPERATIVE DISCUSSION ON APPROPRIATE USE OF NARCOTIC USE: Yes PREOPERATIVE EDUCATION: Multi Modal, Smoking Cessation and Weight Loss with BMI over 35. DISPOSITION: Stable to recovery room
[2023-07-23 11:38] VITALS: TEMP 97.2
[2023-07-23] MEDS ORDERED: ACETAMINOPHEN TAB 325 MG TAB PO SCH (12:00)
[2023-07-23 12:35] VITALS: RESP 18
[2023-07-23 14:53] VITALS: BP 142/90; PULSE 66
[2023-07-23] MEDS ORDERED: IBUPROFEN 600 MG TAB PO SCH (15:00)
== END 2023-07-23 15:40 | disposition home or self-care (01) ==
LOC: OR 06:29
PROVIDERS: ATTEND Surgery
DX: K40.90 Unilateral inguinal hernia, without obstruction or gangrene, not specified as recurrent (principal); I10 Essential (primary) hypertension; I48.91 Unspecified atrial fibrillation; E78.5 Hyperlipidemia, unspecified; K21.9 Gastro-esophageal reflux disease without esophagitis; K58.9 Irritable bowel syndrome, unspecified; M16.12 Unilateral primary osteoarthritis, left hip; Z88.8 Allergy status to other drugs, medicaments and biological substances; Z79.01 Long term (current) use of anticoagulants; Z79.899 Other long term (current) drug therapy
CPT/HCPCS: 49650; S2900

== ENCOUNTER 2024-07-25 10:39 | Day surgery (SDC) | payer BC ==
[~2024-07-25 10:39] MED LIST changes: -ACETAMINOPHEN TAB 500 MG TAB PO PRN; -HEPARIN SODIUM,PORCINE/PF 5,000 UNIT/0.5 ML SYRINGE SQ PRN; +LACTATED RINGERS 1,000 ML IV SCH
[2024-07-25 11:15] VITALS: TEMP 97.4
[2024-07-25] MEDS: LACTATED RINGERS 1,000 ML IV ONE (11:22)
[2024-07-25] MEDS ORDERED: LIDOCAINE 1% INJ 10MG/ML (20 ML MDV) ONE (11:41)
[2024-07-25] MEDS ORDERED: PROPOFOL 10 MG/ML 20 ML VIAL IV ONE (11:41)
--- NOTE | 2024-07-25 11:56 | P.PCN ---
Date of Procedure: 07/25/24 Procedure(s) Performed: BRIEF HISTORY: Patient is a 63-year-old pleasant white male scheduled for an elective colonoscopy as a part of evaluation of prior history history of colon polyps. His last colonoscopy was 5 years ago and was noted to have a serrated adenoma. PROCEDURE PERFORMED: Colonoscopy with biopsy. PREOPERATIVE DIAGNOSIS: History of colon polyps IV sedation per Anesthesia. PROCEDURE: After informed consent was obtained, the patient, was brought into the endoscopy unit. IV sedation was administered by Anesthesia under continuous monitoring. Digital rectal examination was normal. Initially the Olympus CF-160 flexible video colonoscope was then inserted in the rectum, gradually advanced into the cecum without any difficulty. Careful examination was performed as the scope was gradually being withdrawn. Ileocecal valve and the appendiceal orifice were visualized and appeared normal. Prep was excellent. Mucosa of the cecum, appeared normal. The ascending colon there was a 3 mm polyp that was removed by cold biopsy. Rest of the ascending colon, transverse colon, descending colon, sigmoid colon, and rectum appeared normal. Scattered left-sided diverticulosis seen. Retroflexion was performed in the rectum and no lesions were seen. The patient tolerated the procedure well. IMPRESSION: 3 mm ascending colon polyp status post cold biopsy Scattered left-sided diverticulosis RECOMMENDATIONS: Findings of this examination were discussed with the patient as well as his family. He was advised to follow-up with the biopsy results. If the biopsy reveals adenoma he can have repeat colonoscopy in 5 years..
[2024-07-25 13:24] VITALS: BP 112/76; PULSE 78; RESP 20
== END 2024-07-25 12:30 | disposition home or self-care (01) ==
LOC: ORWHC2ENDO 10:39
PROVIDERS: ATTEND Internal Medicine Gastroenterology
DX: Z12.11 Encounter for screening for malignant neoplasm of colon (principal); D12.2 Benign neoplasm of ascending colon; K57.30 Diverticulosis of large intestine without perforation or abscess without bleeding; Z86.0101 Personal history of adenomatous and serrated colon polyps; I10 Essential (primary) hypertension; K58.9 Irritable bowel syndrome, unspecified; I48.91 Unspecified atrial fibrillation; Z79.899 Other long term (current) drug therapy; Z79.01 Long term (current) use of anticoagulants; Z98.890 Other specified postprocedural states; Z96.642 Presence of left artificial hip joint
CPT/HCPCS: 88305; 45380; J2003; J2704